=== PATIENT | female | born 1990 | race Caucasian/White ===

== ENCOUNTER 2017-04-09 13:30 | Inpatient (IN) | payer OTHER, SELFPAY ==
[2017-04-09 13:48] VITALS: BMI 31.6
[2017-04-09] MEDS: Lactated Ringers 1,000 ML 50 ML IV ×2 (14:00→15:50)
[2017-04-09 14:13] LABS: Hematocrit 36.2 % (37-47); Hemoglobin 12.8 g/dl (12.0-15.0); Mean Corp Hgb Conc 35.4 g/gl (32-36); Mean Platelet Vol. 9.9 fl (6.2-12.0); Platelet Count 199 K/mm3 (150-450); RBC Distribution Width SD 39.9 fl (35.1-43.9); Red Blood Count 4.26 M/mm3 (4.2-5.4); White Blood Count 12.6 K/mm3 (4.4-11.0)
[2017-04-09 14:14] LABS: Scan Indicated on CBC? Y/N NO
[2017-04-09] MEDS: Oxytocin 30 units/NS 500 ml 30 UNITS/500 ML IV.SOLN 334 UNITS IV (17:16)
[2017-04-09] MEDS: Oxytocin 30 units/NS 500 ml 30 UNITS/500 ML IV.SOLN 167 UNITS IV (17:46)
[2017-04-09 21:30] VITALS: BP 107/54; PULSE 80; RESP 16; TEMP 36.8; O2SAT 98
[2017-04-09] MEDS: Ibuprofen 600 MG Tablet PO (21:51)
[2017-04-09 23:35] VITALS: BP 117/71; PULSE 95; RESP 16; TEMP 36.6
[2017-04-10 03:10] VITALS: BP 108/54; PULSE 86; RESP 16; TEMP 36.6
[2017-04-10] MEDS: Ibuprofen 600 MG Tablet PO ×2 (03:54→11:12)
[2017-04-10 06:36] LABS: Hematocrit 33.1 % (37-47); Hemoglobin 11.7 g/dl (12.0-15.0); Mean Corp Hgb Conc 35.3 g/gl (32-36); Mean Corpuscular Hgb 30.4 pg (27.0-32.0); Mean Platelet Vol. 10.3 fl (6.2-12.0); Platelet Count 199 K/mm3 (150-450); RBC Distribution Width CV 12.9 % (11.6-14.6); RBC Distribution Width SD 39.4 fl (35.1-43.9); Red Blood Count 3.85 M/mm3 (4.2-5.4); White Blood Count 11.2 K/mm3 (4.4-11.0)
[2017-04-10 06:38] LABS: Scan Indicated on CBC? Y/N NO
--- NOTE | 2017-04-10 08:14 | PCM.OB.VAG ---
- Problem List (1) (spontaneous vaginal delivery) Status: Acute Vaginal Delivery Maternal Presentation: Active Labor Amniotic Membrane Rupture Type: Spontaneous Rupture of Membrane time: 04/09/17 Amniotic Fluid Description: Clear Final SALLY: 04/13/17 Final SALLY Source: US <20 weeks Gestational age: 39 Weeks and 3 Days Date of Procedure: 04/09/17 Pre-Operative Diagnosis: 39 3/7wga, labor Post-Operative Diagnosis: 39 3/7wga, labor Surgery/ Procedure Performed: Spontaneous Vaginal Delivery Anesthesiologist: Shadi Rose Type of Anesthesia: Epidural Description of Procedure: Patient was FD/+ 4 on my arrival and pushed to deliver a vigorous female infant in direct OP. The was placed on the maternal abdomen and further attended by nursery personnel. The cord was doubly clamped and cut at 4 minutes of life. The placenta delivered spontaneously and appeared intact. Cord blood was obtained. A first degree perineal laceration was repaired with 3-0 Vicryl Rapide. There was excellent hemostasis. Presentation: Vertex Placental Delivery Description: Spontaneous Placenta Disposition: [facility] Cord Vessel Description: 3 Vessels Nuchal Cord Compression: Without compression Cord Entanglement: None Drain: Dewey to straight drain Estimated Blood Loss: 300 A gender: Female (1 minute): 9 (5 minute): 9 Episiotomy Description: None Laceration: Midline, Vaginal Extension/lac, 1st degree Medications given after delivery: IV Pitocin
--- NOTE | 2017-04-10 08:19 | OP.PCM_ITS ---
- Problem List (1) (spontaneous vaginal delivery) Status: Acute Vaginal Delivery Maternal Presentation: Active Labor Amniotic Membrane Rupture Type: Spontaneous Rupture of Membrane time: 04/09/17 Amniotic Fluid Description: Clear Final SALLY: 04/13/17 Final SALLY Source: US <20 weeks Gestational age: 39 Weeks and 3 Days Date of Procedure: 04/09/17 Pre-Operative Diagnosis: 39 3/7wga, labor Post-Operative Diagnosis: 39 3/7wga, labor Surgery/ Procedure Performed: Spontaneous Vaginal Delivery Anesthesiologist: Shadi Rose Type of Anesthesia: Epidural Description of Procedure: Patient was FD/+ 4 on my arrival and pushed to deliver a vigorous female infant in direct OP. The was placed on the maternal abdomen and further attended by nursery personnel. The cord was doubly clamped and cut at 4 minutes of life. The placenta delivered spontaneously and appeared intact. Cord blood was obtained. A first degree perineal laceration was repaired with 3 -0 Vicryl Rapide. There was excellent hemostasis. Presentation: Vertex Placental Delivery Description: Spontaneous Placenta Disposition: [facility] Cord Vessel Description: 3 Vessels Nuchal Cord Compression: Without compression Cord Entanglement: None Drain: Dewey to straight drain Estimated Blood Loss: 300 A gender: Female (1 minute): 9 (5 minute): 9 Episiotomy Description: None Laceration: Midline, Vaginal Extension/lac, 1st degree Medications given after delivery: IV Pitocin
--- NOTE | 2017-04-10 08:20 | PCM.PN.OB ---
Patient Problems: Active and Suspected Problems (spontaneous vaginal delivery) (Acute) Subjective: No issues overnight. Denies heavy lochia. is latching and nursing well. No complaints. Objective: AVSS - Physical Exam General: Alert, Oriented x3, Cooperative, No apparent distress HEENT: Atraumatic, Normocephalic Lungs: Normal air movement Cardiovascular: Regular rate, Regular Rhythm, Normal S1, Normal S2 Abdomen: Soft, Non Tender, Non-Distended Extremities: No edema, No Calf Tenderness Neurological: Neuro grossly intact Psych/Mental Status: Normal Affect, Appropriate, Alert and oriented to time, place, person, mood and affect Vital Signs Temp Pulse Resp BP Pulse Ox 97.8 F 86 16 108/54 L 98 04/10/17 03:10 04/10/17 03:10 04/10/17 03:10 04/10/17 03:10 04/09/17 21:30 Oxygen Delivery Method Room Air Weight: 80.9 kg Body Mass Index (BMI) 31.6 Intake and Output for Last 24 Hours 04/08/17 04/09/17 04/10/17 23:59 23:59 23:59 Intake Total 236 / 236 Output Total 500 / 500 300 / 300 Balance -264 / -264 -300 / -300 Laboratory Tests Past 24 Hrs 04/09/17 04/09/17 04/09/17 14:00 14:00 20:40 WBC 12.6 H RBC 4.26 Hgb 12.8 Hct 36.2 L MCV 85.0 MCH 30.0 MCHC 35.4 RDW 13.0 RDW Differential 39.9 Plt Count 199 MPV 9.9 Blood Type O NEGATIVE Antibody Screen NEGATIVE Screen NEGATIVE Baby's Blood Type O POSITIVE Baby's TRACY NEGATIVE 04/10/17 06:10 WBC 11.2 H RBC 3.85 L Hgb 11.7 L Hct 33.1 L MCV 86.0 MCH 30.4 MCHC 35.3 RDW 12.9 RDW Differential 39.4 Plt Count 199 MPV 10.3 Blood Type Antibody Screen Screen Baby's Blood Type Baby's TRACY Assessment/Plan Active and Suspected Problems (spontaneous vaginal delivery) (Acute) 27yo PPD#2 s/p doing well. - -Rh negative, Rh positive - Rhogam ordered -Rubella immune -Routine care -Plan for early discharge today
--- NOTE | 2017-04-10 08:28 | DCINST_ITS ---
Discharge Diet: No Restrictions Discharge Activity: Return to Normal Activity, May Shower, May Take a Tub Bath May resume sexual activity in: 6 weeks Lifting Restrictions: 20 lb Call your doctor if you observe: Fever of 101 or Higher, Inability to urinate, Inability to have a bowel movement, Using more than one pad per hour, Shortness of breath, Chest pain, Uncontrolled pain Suture Line Care: Avoid Pulling/Pushing Cleanse incision/area with: Soap & Water Additional Instructions: If you experience any of the following, contact your healthcare provider. * Bleeding that soaks a pad every hour for 2 hours * Fever 100.4 or higher * Unrelieved incision or abdominal pain * Swelling, redness, discharge or bleeding from your incision or episiotomy site * Your incision begins to separate * Problems urinating (including inability to urinate or burning while urinating) . * Visual changes * Severe headache * Flu-like symptoms * Pain or redness in one of both of your breasts * Pain, warmth, tenderness or swelling in your legs, especially the calf area * Frequent nausea and vomiting * Symptoms of depression or anxiety If you experience any of the following, call 911 or go to the nearest Emergency Room. * Chest pain * Problems breathing * Seizure activity * Partial or complete paralysis of a body part, slurred speech, weakness or drooping of the face, or a sudden inability to walk or hold your balance Allergies/Adverse Reactions: Allergies No Known Allergies Allergy (Verified 04/09/17 13:54) Medications to take at Discharge Pnv95/Ferrous Fumarate/FA [ Vitamins Tablet] 1 each PO DAILY 04/09/17 Ibuprofen [Motrin] 800 mg PO TID PRN PRN #30 tablet 04/10/17 Senna/Docusate Sodium [Senokot-S] 1 - 2 tablet PO DAILY PRN PRN tablet The following prescriptions were given: Ibuprofen [Motrin] 800 mg PO TID PRN PRN #30 tablet PRN Reason: Constipation Orders to be completed after discharge: Electric breast pump Location: None Selected Please Follow Up With: Oneyda Rhodes MD When: 6 weeks Primary Care Physician: Darin White MD [Primary Care Provider] -
[2017-04-10 09:25] VITALS: BP 96/63; PULSE 75; RESP 16; TEMP 36.8
[2017-04-10] MEDS: Senna/Docusate Sodium 1 Tablet PO (11:23)
[2017-04-10 16:05] VITALS: BP 95/65; PULSE 75; RESP 16; TEMP 36.6
[2017-04-10 16:10] VITALS: BP 95/65; PULSE 75; RESP 16; TEMP 36.6
[2017-04-10 21:00] VITALS: BP 102/75; PULSE 65; RESP 18; TEMP 36.7
[2017-04-11 02:00] VITALS: BP 110/69; PULSE 66; RESP 16; TEMP 36.7
[2017-04-11] MEDS: Senna/Docusate Sodium 1 Tablet PO (07:48)
[2017-04-11 08:01] VITALS: BP 115/68; PULSE 60; RESP 16; TEMP 36.6; O2SAT 99
--- NOTE | 2017-04-11 08:16 | PCM.PN.OB ---
Patient Problems: Active and Suspected Problems (spontaneous vaginal delivery) (Acute) Subjective: No issues overnight. Infant latches well on right and intermittently and left, but otherwise nurses well. No complaints. Objective: AVSS - Physical Exam General: Alert, Oriented x3, Cooperative, No apparent distress HEENT: Atraumatic, Normocephalic Lungs: Clear to auscultation, Normal air movement Cardiovascular: Regular rate, Regular Rhythm, Normal S1, Normal S2 Abdomen: Soft, Non Tender, Non-Distended, - - Fundus firm and nontender Extremities: No edema Neurological: Neuro grossly intact Psych/Mental Status: Normal Affect, Appropriate, Alert and oriented to time, place, person, mood and affect Vital Signs Temp Pulse Resp BP Pulse Ox 97.8 F 60 16 115/68 99 04/11/17 08:01 04/11/17 08:01 04/11/17 08:01 04/11/17 08:01 04/11/17 08:01 Oxygen Delivery Method Room Air Weight: 80.9 kg Body Mass Index (BMI) 31.6 Intake and Output for Last 24 Hours 04/09/17 04/10/17 04/11/17 23:59 23:59 23:59 Intake Total 236 / 236 Output Total 500 / 500 300 / 300 Balance -264 / -264 -300 / -300 Assessment/Plan Active and Suspected Problems (spontaneous vaginal delivery) (Acute) 27yo PPD#2 s/p doing well. - -Rh negative, Rh positive -s/p Rhogam -Rubella immune -Routine care - awaiting bilirubin studies -Plan for d/c today -
== END 2017-04-11 11:20 | disposition home or self-care (01) | DRG 775 ==
PROVIDERS: Admitting Provider Obstetrics & Gynecology; Family Provider Family Medicine; PCP Family Medicine; Visit Provider Obstetrics & Gynecology
DX: O69.81X0 Labor and delivery complicated by cord around neck, without compression, not applicable or unspecified (principal); O70.0 First degree perineal laceration during delivery; Z3A.39 39 weeks gestation of pregnancy; Z37.0 Single live birth
CPT/HCPCS: 59025; 59050; 85027; 85461; 86850; 86900; 90384; 99218; J7120; A4216; G0378; J2790

== ENCOUNTER 2017-04-15 15:22 | Emergency (ER) | payer OTHER, SELFPAY ==
[2017-04-11 08:01] VITALS: BP 115/68
[2017-04-15 15:23] VITALS: BP 126/72; PULSE 74; RESP 16; TEMP 37.6; O2SAT 97; BMI 28.8
--- NOTE | 2017-04-15 15:50 | VDLE_ITS ---
Reason For Study: PAIN RIGHT LEFT GSV is normal. GSV is normal. CFV is compressible, spontaneous, phasic, CFV is compressible, spontaneous, phasic, competent and demonstrates normal competent, and demonstrates normal augmentation. augmentation. FV is compressible, spontaneous, phasic, FV is compressible, spontaneous, phasic, competent and demonstrates normal competent and demonstrates normal augmentation. augmentation. POP V is compressible, spontaneous, phasic, POP V is compressible, spontaneous, phasic, competent and demonstrates normal competent and demonstrates normal augmentation. augmentation. T/P Trunk is compressible. T/P Trunk is compressible. PTV is compressible. PTV is compressible. RT PerV is compressible. LT PerV is compressible. Procedure Exam performed portable in ED. The exam was diagnostic. A preliminary report was called and/or faxed to DR. MARQUEZ & ED. Interpretation Summary Deep veins of the lower extremities are bilaterally patent and compressible segmentally. There is no evidence of deep vein thrombosis on either side. Valvular competence appears intact within the proximal deep venous systems bilaterally. The greater saphenous veins appear bilaterally patent and compressible segmentally. Ordering Physician: Amalia Marquez Referring Physician: Oneyda Rhodes Performed By: Yasmin Bridges RVT
--- NOTE | 2017-04-15 15:50 | RAD_ITS ---
STUDY: X-RAY CHEST REASON FOR EXAM: Female, 27 years old. Fever. Headache. 6 days . Sharp intermittent left-sided chest pain. TECHNIQUE: Single AP portable view of the chest. COMPARISON: None. FINDINGS: The lungs are clear and expanded. No infiltrate or mass. There is no pneumothorax. There is no demonstrated pleural abnormality. Normal size heart. Normal mediastinum and alexander. Normal visualized pulmonary arteries. Normal visualized aortic arch and descending thoracic aorta. There is a minimal dextroscoliosis of the thoracic spine. Normal visualized ribs, clavicles, and shoulders. There is no demonstrated abnormality of the visualized soft tissue structures of the upper abdomen. RAD/Chest 1 View (Portable) IMPRESSION: No acute cardiopulmonary disease. Electronically Signed: Raj Irizarry DO at 16:14 EST Tel [phone], Service support ,
--- NOTE | 2017-04-15 15:51 | CT_ITS ---
STUDY: CT ABDOMEN AND PELVIS WITH CONTRAST REASON FOR EXAM: Female, 27 years old. Left-sided abdominal pain. 6 days . Fever. Calf pain. RADIATION DOSAGE (If Supplied By Facility): CTDIvol = ( 13.69 ) mGy, DLP = ( 857.39 ) mGycm TECHNIQUE: Transaxial images were obtained from the dome of the diaphragm to the symphysis pubis without oral contrast. 100 ml of Isovue 300 contrast was administered. Sagittal and coronal images were reconstructed. Individualized dose optimization techniques were used for this CT. COMPARISON: None. FINDINGS: The visualized lung bases are unremarkable. The visualized portions of the heart are within normal limits. Normal liver. Normal gallbladder and extrahepatic biliary system. There is mild splenomegaly. Normal pancreas. Normal bilateral adrenal glands. Normal right kidney. Normal left kidney. Normal visualized stomach. Normal small intestine. There is increased colonic feces without obstruction. The appendix is visualized and appears normal. Normal abdominal aorta. Normal inferior vena cava. Normal retroperitoneum. Normal urinary bladder. The uterus is markedly prominent keeping with recent delivery. Normal right adnexa. There is a 3.3 x 3.3 x 2.7 cm left adnexal cyst. No pelvic lymphadenopathy. No free air or free fluid is seen within the abdominal cavity. There is an umbilical hernia of omental fat. The abdominal wall is otherwise intact. Normal osseous structures. CT/Abdomen/Pelvis W IV Cont ONLY IMPRESSION: 1. Prominent uterus without gross abnormality. 2. Left ovarian cyst. 3. No other evidence for abdominal or pelvic abnormality. Electronically Signed: Raj Irizarry DO at 17:37 EST Tel [phone], Service support ,
--- NOTE | 2017-04-15 15:53 | ED.VISSUMM ---
- ER Visit Summary Date of Service: 04/15/17 Chief Complaint: Febrile illness History of Present Illness: The patient is a 27 F presenting with fever. Temperature at home has been up to 102.3. She complains of body aches, headache, mild cough. She has had left lower quadrant abdominal pain with constipation. She denies nausea vomiting. She does have sick contacts. She did not receive a flu shot this year. She is 6 days from a vaginal delivery. She took Motrin at home with improvement. Physical Examination: Vitals are stable. Temperature 99.7 . Alert no acute distress. HEENT exam is unremarkable. Neck is supple. No meningismus Lungs are clear and equal bilaterally. Heart is regular rate and rhythm. Abdomen is soft left lower quadrant tenderness with no rebound or guarding Extremities right posterior thigh tenderness, normal distal pulses bilaterally Pelvic: external exam unremarkable, no signs of infection Skin is warm and dry. Remainder of exam is unremarkable. Emergency Department Course and Treatment: She was given IV fluids, Toradol. CBC showed a white count of 14.0. Chemistries show potassium 3.3. Urinalysis shows 25-50 white blood cells, 10-25 red blood cells, urine culture is sent. influenza is negative. Chest x-ray shows no acute process. Ultrasound of the bilateral lower extremities shows no evidence of DVT. CT abdomen pelvis shows left ovarian cyst. Patient is resting comfortably in the emergency department. She is feeling improved. She is given potassium oral replacement and Keflex. Discussed with Dr. Miller and she will follow-up with Dr. Aracelis Jarrett. Advised return ED if worsening complaints. Disposition: Discharge home Impression: Febrile illness, , left ovarian cyst, UTI This note was generated with [employer] dictation software. It may contain incorrect words, spelling, and punctuation that were not noted in review of the chart prior to signing ED Disposition - Plan for ED Patient: Chief Complaint: Fever Referrals: Darin White MD [Primary Care Provider] -
--- NOTE | 2017-04-15 15:56 | ED.DCSUM_ITS ---
- ER Visit Summary Date of Service: 04/15/17 Chief Complaint: Febrile illness History of Present Illness: The patient is a 27 F presenting with fever. Temperature at home has been up to 102.3. She complains of body aches, headache , mild cough. She has had left lower quadrant abdominal pain with constipation. She denies nausea vomiting. She does have sick contacts. She did not receive a flu shot this year. She is 6 days from a vaginal delivery. She took Motrin at home with improvement. Physical Examination: Vitals are stable. Temperature 99.7 . Alert no acute distress. HEENT exam is unremarkable. Neck is supple. No meningismus Lungs are clear and equal bilaterally. Heart is regular rate and rhythm. Abdomen is soft left lower quadrant tenderness with no rebound or guarding Extremities right posterior thigh tenderness, normal distal pulses bilaterally Pelvic: external exam unremarkable, no signs of infection Skin is warm and dry. Remainder of exam is unremarkable. Emergency Department Course and Treatment: She was given IV fluids, Toradol. CBC showed a white count of 14.0. Chemistries show potassium 3.3. Urinalysis shows 25-50 white blood cells, 10-25 red blood cells, urine culture is sent. influenza is negative. Chest x-ray shows no acute process. Ultrasound of the bilateral lower extremities shows no evidence of DVT. CT abdomen pelvis shows left ovarian cyst. Patient is resting comfortably in the emergency department. She is feeling improved. She is given potassium oral replacement and Keflex. Discussed with Dr. Miller and she will follow-up with Dr. Aracelis Jarrett. Advised return ED if worsening complaints. Disposition: Discharge home Impression: Febrile illness, , left ovarian cyst, UTI This note was generated with [employer] dictation software. It may contain incorrect words, spelling, and punctuation that were not noted in review of the chart prior to signing ED Disposition - Plan for ED Patient: Chief Complaint: Fever Referrals: Darin White MD [Primary Care Provider] -
[2017-04-15 16:26] LABS: Absolute Lymphocyte Count 0.89 X10^3/ul (0.83-4.51); Absolute Neutrophil Count 12.2 X10^3/uL (2.0-7.7); Basophil# 0.02 X10^3/uL; Basophil% 0.1 % (0-1); Hematocrit 34.5 % (37-47); Lymphocyte # 0.89 X10^3/ul (4.0); Lymphocyte % 6.4 % (19-41); Mean Corp Hgb Conc 34.8 g/gl (32-36); Mean Corpuscular Hgb 29.6 pg (27.0-32.0); Mean Corpuscular Volume 85.2 fL (81-99); Monocyte# 0.84 X10^3/uL; Neutrophil # 12.18 X10^3/uL (2.7-7.7); Neutrophil % 87.1 % (47-70); Platelet Count 215 K/mm3 (150-450); RBC Distribution Width CV 12.5 % (11.6-14.6); RBC Distribution Width SD 38.8 fl (35.1-43.9); Red Blood Count 4.05 M/mm3 (4.2-5.4)
[2017-04-15 16:34] LABS: Anion Gap 11 (5-15); BUN 10 mg/dL (7-18); BUN/Creat Ratio 12.8 RATIO (10-20); Calcium,Total 8.7 mg/dL (8.5-10.1); Chloride 105 mmol/L (98-107); Creatinine, Serum 0.78 mg/dL (0.55-1.02); EST Glomerular Filtration Rate 94 mL/min (>60); Est Glom Filt Rate - Afr Amer 113 mL/min (>60); Estimated Creatinine Clearance 88.83 ml/min; Glucose 87 mg/dL (74-106); Potassium 3.3 mmol/L (3.5-5.1); Sodium Level 140 mmol/L (136-145)
[2017-04-15 16:36] LABS: POSITIVE COUNT NO; POSITIVE DIFFERENTIAL NO; POSITIVE MORPHOLOGY NO
[2017-04-15] MEDS: Ketorolac 15 MG/ML Vial IV (16:41)
[2017-04-15] MEDS: 0.9% Normal Saline 1,000 ML 1000 ML IV (16:41)
[2017-04-15 17:03] LABS: Mucous, Urine 0 SEEN /hpf (<or=2+)
[2017-04-15 17:09] LABS: Color, Urine Yellow (Yellow); Glucose, Dipstick Normal (Normal); Ketone-Dipstick Negative (Negative); Leukocyte Esterase-Dipstick 500 /ul (Negative); Nitrite-Dipstick Negative (Negative); Occult Blood-Urine 250 /ul (Negative); Protein-Dipstick 15 mg/dl (Negative); Specific Gravity, Urine 1.005 (1.002-1.030); Urine Bilirubin Dipstick Negative (Negative); Urine Clarity Sl. Cloudy (Clear); Urine Urobilinogen Normal (Normal); Urine pH 6.5 (5.0 - 8.0)
[2017-04-15 17:18] LABS: Amorphous Sediment 1+ URATE; Bacteria RARE /hpf (None Seen); Red Blood Cells-Urine 10-25 SEEN /hpf (0-5); Squamous Epithelial Cells - UA 0-5 SEEN /hpf (5-10); White Blood Cells 25-50 SEEN /hpf (0-5)
--- NOTE | 2017-04-15 18:02 | ED.DEP ---
ED Disposition - Plan for ED Patient: Chief Complaint: Fever Instructions: ED Flu, ED UTI Cystitis Female Prescriptions: Cephalexin [Keflex] 500 mg PO Q6 #40 capsule Referrals: Darin White MD [Primary Care Provider] - Oneyda Rhodes MD [STAFF PHYSICIAN] -
[2017-04-15] MEDS: Cephalexin 250 MG Capsule 500 MG PO (18:27)
[2017-04-15 18:31] VITALS: PULSE 68; RESP 16; O2SAT 100
== END 2017-04-15 18:33 | disposition home or self-care (01) ==
PROVIDERS: Emergency Provider Emergency Medicine; Family Provider Family Medicine; PCP Family Medicine
DX: O86.4 Pyrexia of unknown origin following delivery (principal); O86.20 Urinary tract infection following delivery, unspecified; N83.202 Unspecified ovarian cyst, left side
CPT/HCPCS: 71045; 74176; 80048; 81001; 85025; 87077; 87086; 87088; 87804; 93970; 96361; 96374; 99284; J7030; Q9967; A4216

== ENCOUNTER → 2020-04-13 | Outpatient (CLI) | payer OTHER, SELFPAY ==
[2020-04-19 15:59] LABS: HPV APTIMA, High Risk Negative (Negative)
== END | disposition home or self-care (01) ==
LOC: LABSPEC 15:21
PROVIDERS: PCP Family Medicine; Visit Provider Obstetrics & Gynecology
DX: Z12.4 Encounter for screening for malignant neoplasm of cervix (principal)
CPT/HCPCS: 87624; 88175; G0145

== ENCOUNTER → 2020-05-10 | Outpatient (CLI) | payer OTHER, SELFPAY ==
[2020-05-11 10:06] LABS: Probe Check PASS
== END | disposition home or self-care (01) ==
LOC: LABSPEC 15:28
PROVIDERS: PCP Family Medicine; Referring Provider Family Medicine; Visit Provider Nurse Practitioner Family
DX: U07.1 COVID-19 (principal)
CPT/HCPCS: 87635; U0002; U0003

== ENCOUNTER → 2020-10-02 11:02 | Outpatient (CLI) | payer OTHER, SELFPAY ==
[2020-10-02 12:38] LABS: Absolute Neutrophil Count 3.7 X10^3/uL (2.0-7.7); Basophil# 0.04 X10^3/uL; Basophil% 0.7 % (0-1); Eosinophil# 0.02 X10^3/uL; Eosinophils% 0.3 % (0-5); Hematocrit 40.6 % (37-47); Hemoglobin 13.9 g/dL (12.0-15.0); Lymphocyte % 25.8 % (19-41); Mean Corp Hgb Conc 34.2 g/dL (32-36); Mean Corpuscular Volume 84.6 fL (81-99); Mean Platelet Vol. 10.3 fl (6.2-12.0); Monocyte# 0.54 X10^3/uL; Monocyte% 9.3 % (0-10); NRBC Flagged by Analyzer 0 % (0-5); Neutrophil # 3.68 X10^3/uL (2.7-7.7); Neutrophil % 63.4 % (47-70); Platelet Count 279 K/mm3 (150-450); RBC Distribution Width CV 12.2 % (11.6-14.6); RBC Distribution Width SD 37.2 fl (35.1-43.9); White Blood Count 5.8 K/mm3 (4.4-11.0)
[2020-10-02 13:02] LABS: ALB/GLOB Ratio 1.2 RATIO (0.9-2.4); AST(SGOT) 15 U/L (15-37); Alanine Aminotransfer ALT/SGPT 22 U/L (13-56); Albumin, Serum 4.2 g/dL (3.2-5.0); Alkaline Phosphatase 62 U/L (45-117); Anion Gap 5 (5-15); BUN 14 mg/dL (7-18); BUN/Creat Ratio 16.8 RATIO (10-20); Calcium,Total 9.1 mg/dL (8.5-10.1); Chloride 105 mmol/L (98-107); Creatinine, Serum 0.83 mg/dL (0.55-1.02); EST Glomerular Filtration Rate 85 mL/min (>60); Est Glom Filt Rate - Afr Amer 103 mL/min (>60); Globulin 3.6 g/dL (2.2-4.2); Glucose 75 mg/dL (74-106); Potassium 3.8 mmol/L (3.5-5.1); Protein, Total 7.8 g/dL (6.4-8.2); Sodium Level 138 mmol/L (136-145); T4 Free Direct 0.75 ng/dL (0.76-1.46)
[2020-10-09 03:06] LABS: Thyroid Stim Immunoglob <0.10 IU/L (0.00-0.55)
[2020-10-09 10:06] LABS: Anti-Thyroglobulin AB 3.5 IU/mL (0.0-0.9); Thyroglobulin RIA 23 ng/mL (.); Thyroid Peroxidase AB 167 IU/mL (0-34)
== END ==
PROVIDERS: Family Medicine; PCP Family Medicine; Referring Provider Family Medicine; Visit Provider Family Medicine
DX: E01.0 Iodine-deficiency related diffuse (endemic) goiter (principal)
CPT/HCPCS: 36415; 80053; 84432; 84439; 84443; 84445; 85025; 86376; 86800

== ENCOUNTER → 2020-10-08 10:22 | Outpatient (CLI) | payer OTHER, SELFPAY ==
--- NOTE | 2020-10-08 10:24 | US_ITS ---
INDICATION: THROIMEGELY EXAMINATION: Ultrasound US Thyroid (eg thyroid, parathyroid, parotid) TECHNIQUE: Parks scale and color doppler imaging was performed of the thyroid gland. COMPARISON: None. FINDINGS: RIGHT THYROID LOBE: 5.8 x 2.4 x 2.1 cm. Heterogeneous echotexture with normal vascularity. [No thyroid nodules are present. LEFT THYROID LOBE: 5.0 x 2.0 x 1.9 cm. Heterogeneous echotexture with normal vascularity. [No thyroid nodules are present. ISTHMUS: 0.8 cm. No thyroid nodules are present. US/Thyroid IMPRESSION: A Mild thyroid goiter is identified. Electronically Signed: Darin Kam DO at 8:17 EDT Tel , Service support ,
== END ==
PROVIDERS: PCP Family Medicine; Referring Provider Family Medicine; Visit Provider Family Medicine
DX: E01.0 Iodine-deficiency related diffuse (endemic) goiter (principal)
CPT/HCPCS: 76536

== ENCOUNTER → 2021-01-17 16:33 | Outpatient (CLI) | payer OTHER, SELFPAY ==
[2021-01-17 18:01] LABS: Thyroid Stim Hormone (TSH) 0.41 uIU/mL (0.358-3.74)
== END ==
PROVIDERS: PCP Family Medicine; Referring Provider Family Medicine; Visit Provider Internal Medicine Endocrinology, Diabetes & Metabolism
DX: E06.3 Autoimmune thyroiditis (principal)
CPT/HCPCS: 36415; 84439; 84443

== ENCOUNTER 2021-05-21 07:41 | Outpatient (CLI) | payer OTHER, SELFPAY ==
--- NOTE | 2021-05-21 07:55 | RAD_ITS ---
INDICATION: DYSPHAGIA EXAMINATION/TECHNIQUE: Barium oral contrast and gas bubbles were administered to the patient. Total Fluoroscopic Time: 34 seconds AND number of Fluoroscopic Images: 24 OR Radiation dosage index: COMPARISON: None. FINDINGS: The esophagus does not coat well with barium however, no obvious masses or strictures. No obvious abnormalities in the mucosal pattern. Normal motility. There is no hiatal hernia. Reflux was not elicited. RAD/Esophagus Dual Contrast IMPRESSION: Unremarkable esophagram. Electronically Signed: Luke Arevalo, at 9:19 EDT ,
== END 2021-05-21 23:59 | disposition home or self-care (01) ==
LOC: RAD 07:44
PROVIDERS: PCP Family Medicine; Referring Provider Otolaryngology; Visit Provider Otolaryngology
DX: R13.10 Dysphagia, unspecified (principal)
CPT/HCPCS: 74221

== ENCOUNTER 2021-10-22 11:37 | Outpatient (CLI) | payer OTHER, SELFPAY ==
[2021-10-22 13:11] LABS: Absolute Lymphocyte Count 1.45 X10^3/uL (0.83-4.51); Absolute Neutrophil Count 7.1 X10^3/uL (2.0-7.7); Basophil# 0.03 X10^3/uL; Basophil% 0.3 % (0-1); Eosinophil# 0.02 X10^3/uL; Eosinophils% 0.2 % (0-5); Hematocrit 43.8 % (37-47); Hemoglobin 15.9 g/dL (12.0-15.0); Lymphocyte # 1.45 X10^3/ul (0.83-4.51); Lymphocyte % 15.8 % (19-41); Mean Corp Hgb Conc 36.3 g/dL (32-36); Mean Corpuscular Hgb 30.8 pg (27.0-32.0); Mean Corpuscular Volume 84.7 fL (81-99); Mean Platelet Vol. 10.6 fl (6.2-12.0); Monocyte# 0.49 X10^3/uL; Monocyte% 5.4 % (0-10); NRBC Flagged by Analyzer 0 % (0-5); Neutrophil # 7.12 X10^3/uL (2.7-7.7); Neutrophil % 77.9 % (47-70); Platelet Count 254 K/mm3 (150-450); RBC Distribution Width SD 36.5 fl (35.1-43.9); Red Blood Count 5.17 M/mm3 (4.2-5.4); White Blood Count 9.2 K/mm3 (4.4-11.0)
[2021-10-22 13:36] LABS: Thyroid Stim Hormone (TSH) 2.96 uIU/mL (0.358-3.74)
[2021-10-22 14:02] LABS: HIV - WCH Non-Reactive (Nonreactive); Hepatitis B Surface Antigen Non-Reactive (Nonreactive); Hepatitis C Antibody Non-Reactive (Nonreactive); Rubella IgG Reactive (Nonreactive); Syphilis Antibodies Non-reactive
[2021-10-24 22:06] LABS: Chlamydia By Nucleic Acid AMP Negative (Negative); Gonococcus By Nucleic Acid AMP Negative (Negative)
[2021-10-25 11:44] LABS: V-Zoster IgG (Immunity) 1707 index (Immune >165)
== END 2021-10-22 23:59 | disposition home or self-care (01) ==
LOC: WOBLAB 11:40
PROVIDERS: PCP Family Medicine; Referring Provider Obstetrics & Gynecology; Visit Provider Obstetrics & Gynecology
DX: O99.281 Endocrine, nutritional and metabolic diseases complicating pregnancy, first trimester (principal); E06.3 Autoimmune thyroiditis; Z11.3 Encounter for screening for infections with a predominantly sexual mode of transmission; Z12.4 Encounter for screening for malignant neoplasm of cervix; Z34.81 Encounter for supervision of other normal pregnancy, first trimester
CPT/HCPCS: 36415; 84443; 85025; 86703; 86762; 86780; 86787; 86803; 87086; 87088; 87340; 87491; 87591

== ENCOUNTER → 2021-12-17 | Outpatient (CLI) | payer OTHER, SELFPAY | END | disposition home or self-care (01) | LOC: WOBLAB 13:48 | PROVIDERS: PCP Family Medicine; Visit Provider Obstetrics & Gynecology | DX: E03.9 Hypothyroidism, unspecified (principal) | CPT/HCPCS: 36415; 84443 ==

== ENCOUNTER → 2022-03-19 | Outpatient (CLI) | payer OTHER, SELFPAY ==
[2022-03-19 11:51] LABS: Glucose Challenge Gest 1H 50g 110 mg/dL (70-140); Thyroid Stim Hormone (TSH) 0.94 uIU/mL (0.358-3.74)
[2022-03-19 12:01] LABS: Absolute Neutrophil Count 7.4 X10^3/uL (2.0-7.7); Basophil# 0.03 X10^3/uL; Basophil% 0.3 % (0-1); Eosinophil# 0.05 X10^3/uL; Eosinophils% 0.5 % (0-5); Hematocrit 34.3 % (37-47); Hemoglobin 12.2 g/dL (12.0-15.0); Lymphocyte % 12.8 % (19-41); Mean Corp Hgb Conc 35.6 g/dL (32-36); Mean Corpuscular Hgb 30.7 pg (27.0-32.0); Mean Corpuscular Volume 86.2 fL (81-99); Mean Platelet Vol. 10.6 fl (6.2-12.0); Monocyte# 0.57 X10^3/uL; Monocyte% 6.1 % (0-10); NRBC Flagged by Analyzer 0 % (0-5); Neutrophil # 7.39 X10^3/uL (2.7-7.7); Neutrophil % 79.2 % (47-70); Platelet Count 214 K/mm3 (150-450); RBC Distribution Width CV 12.7 % (11.6-14.6); RBC Distribution Width SD 39.7 fl (35.1-43.9); Red Blood Count 3.98 M/mm3 (4.2-5.4); White Blood Count 9.3 K/mm3 (4.4-11.0)
== END | disposition home or self-care (01) ==
LOC: WOBLAB 09:01
PROVIDERS: PCP Family Medicine; Visit Provider Obstetrics & Gynecology
DX: Z34.83 Encounter for supervision of other normal pregnancy, third trimester (principal)
CPT/HCPCS: 36415; 82950; 84443; 85025; 86850

== ENCOUNTER → 2022-05-14 | Outpatient (CLI) | payer OTHER, SELFPAY ==
[2022-05-14 13:02] LABS: Absolute Lymphocyte Count 1.62 X10^3/uL (0.83-4.51); Absolute Neutrophil Count 6.3 X10^3/uL (2.0-7.7); Basophil# 0.04 X10^3/uL; Basophil% 0.5 % (0-1); Eosinophil# 0.01 X10^3/uL; Eosinophils% 0.1 % (0-5); Hematocrit 37.2 % (37-47); Hemoglobin 13.3 g/dL (12.0-15.0); Lymphocyte # 1.62 X10^3/ul (0.83-4.51); Lymphocyte % 18.5 % (19-41); Mean Corp Hgb Conc 35.8 g/dL (32-36); Mean Corpuscular Hgb 30.1 pg (27.0-32.0); Mean Corpuscular Volume 84.2 fL (81-99); Mean Platelet Vol. 10.6 fl (6.2-12.0); Monocyte# 0.71 X10^3/uL; Monocyte% 8.1 % (0-10); NRBC Flagged by Analyzer 0 % (0-5); Neutrophil # 6.28 X10^3/uL (2.7-7.7); Neutrophil % 71.7 % (47-70); Platelet Count 214 K/mm3 (150-450); RBC Distribution Width CV 13.1 % (11.6-14.6); RBC Distribution Width SD 40.3 fl (35.1-43.9); Red Blood Count 4.42 M/mm3 (4.2-5.4); White Blood Count 8.8 K/mm3 (4.4-11.0)
[2022-05-14 13:26] LABS: Thyroid Stim Hormone (TSH) 0.74 uIU/mL (0.358-3.74)
[2022-05-14 13:32] LABS: Syphilis Antibodies Non-reactive
== END | disposition home or self-care (01) ==
LOC: WOBLAB 11:35
PROVIDERS: PCP Family Medicine; Visit Provider Obstetrics & Gynecology
DX: Z34.83 Encounter for supervision of other normal pregnancy, third trimester (principal); Z36.85 Encounter for antenatal screening for Streptococcus B
CPT/HCPCS: 36415; 84443; 85025; 86780; 87081

== ENCOUNTER 2022-05-26 09:36 | Inpatient (IN) | payer OTHER, SELFPAY ==
[2022-05-26] VITALS (63 sets, daily range): BP systolic 113–150; BP diastolic 57–87; PULSE 56–162; RESP 16; TEMP 36.6–37.7; O2SAT 88–100; BMI 31.5
[2022-05-26 09:33] LABS: ROM Internal Control Test YES-OK TO RESULT pt. (Internal QC)
[2022-05-26 09:34] LABS: ROM Patient Test POSITIVE (Negative)
[2022-05-26] MEDS: Lactated Ringers 1,000 ML 50 ML IV (10:10)
--- NOTE | 2022-05-26 10:31 | PCM.HP.BLA ---
History and Physical Date of Admission: 05/26/22 HPI: 32-year-old G3, P2 at 38/2 weeks, SALLY 06/07/2022 by LMP admitted for prelabor rupture of membranes. Patient had rupture of membranes at approximately noon on May 25. Reports irregular contractions, movement. Denies vaginal bleeding. Denies headache or vision changes, chest pain or shortness of breath, nausea or vomiting, diarrhea or constipation, fevers or chills. complicated by: Hypothyroidism with normal growth [employer] history G1: 41-week G2: 39-week G3 current Medical history: 1. Hypothyroidism Surgical history: 1. Foot surgery Medications: 1. Levothyroxine 88 mcg daily 2. vitamin Family history: Noncontributory no history of blood clots or bleeding disorders Social history: Denies tobacco, alcohol, drug use Allergies: No known drug allergies review of system: Negative otherwise stated above Physical exam: Blood pressure 126/84, pulse 66Temp 97.1 ?F, oxygen saturation 98% on room air General: No acute distress HEENT: Normal cephalic/atraumatic, PERRLA Cardiorespiratory: No increased effort Abdomen: Soft, nontender, gravid Extremities: No edema Neurologic: Cranial nerves II through XII grossly intact, no focal deficits Musculoskeletal: Strength out of 5 throughout extremities heart rate:135/mod angel/+accel/no decel Bowler: irregular Assessment/plan: 32-year-old G3, P2 at 38/2 weeks, SALLY 06/07/2022 by LMP admitted for prelabor rupture of membranes. complicated by: Hypothyroidism. ?Admit to labor and delivery for prelabor rupture of membranes. ? Augment with Pitocin since patient has been ruptured for almost 24 hours. ? Hypothyroidism, continue medication ? GBS negative ? Class I obesity
[2022-05-26 10:35] LABS: Absolute Lymphocyte Count 1.53 X10^3/uL (0.83-4.51); Absolute Neutrophil Count 6.9 X10^3/uL (2.0-7.7); Basophil# 0.05 X10^3/uL; Basophil% 0.5 % (0-1); Eosinophil# 0.02 X10^3/uL; Eosinophils% 0.2 % (0-5); Hemoglobin 13.9 g/dL (12.0-15.0); Lymphocyte # 1.53 X10^3/ul (0.83-4.51); Lymphocyte % 16.7 % (19-41); Mean Corp Hgb Conc 35.6 g/dL (32-36); Mean Corpuscular Volume 84.1 fL (81-99); Mean Platelet Vol. 10.7 fl (6.2-12.0); Monocyte# 0.65 X10^3/uL; Monocyte% 7.1 % (0-10); NRBC Flagged by Analyzer 0 % (0-5); Neutrophil # 6.86 X10^3/uL (2.7-7.7); Neutrophil % 74.8 % (47-70); Platelet Count 217 K/mm3 (150-450); RBC Distribution Width CV 13.2 % (11.6-14.6); Red Blood Count 4.64 M/mm3 (4.2-5.4); White Blood Count 9.2 K/mm3 (4.4-11.0)
[2022-05-26] MEDS: Oxytocin 15 Units/NS 250ml 15 UNITS/250 ML IV.SOLN 2 UNITS IV (10:41)
[2022-05-26 11:22] LABS: Syphilis Antibodies Non-reactive
[2022-05-26] MEDS: LACTATED RINGERS 500 ML 999 ML IV (14:12)
[2022-05-26] MEDS: fentaNYL-bupivacaine (epidural) 100 ML BAG EPIDURAL (15:02)
[2022-05-26] MEDS: Lactated Ringers 1,000 ML 200 ML IV (15:48)
--- NOTE | 2022-05-26 18:13 | EX.PCM.OBRPT ---
Maternal Data Information Final SALLY: 06/07/22 Vaginal Delivery Operative Information Date of Procedure: 05/26/22 Pre-Operative Diagnosis: Bentley intrauterine at term, prelabor rupture of membranes Post-Operative Diagnosis: Bentley intrauterine at term, prelabor rupture of membranes Surgery / Procedure Performed: Spontaneous Vaginal Delivery Type of Anesthesia: Epidural Estimated Blood Loss: 300cc Findings Description of Procedure: Spontaneous vaginal delivery of viable infant female. No nuchal cord. Baby to mom. Cord clamped and cut. Spontaneous delivery of placenta. Second-degree laceration repaired in the usual fashion, hemostatic. Infant A Gender: Female (1 minute): 8 (5 minute): 9 Complication Complications: None
[2022-05-26] MEDS: Oxytocin 15 Units/NS 250ml 15 UNITS/250 ML IV.SOLN 83 UNITS IV (18:46)
[2022-05-27] VITALS (8 sets, daily range): BP systolic 117–125; BP diastolic 70–86; PULSE 56–65; RESP 16–18; TEMP 36.8–37.1; O2SAT 98–100
[2022-05-27] MEDS: Ibuprofen 600 MG Tablet PO ×2 (01:20→12:39)
[2022-05-27] MEDS: Acetaminophen 500 MG Tablet 1000 MG PO ×2 (04:24→16:08)
[2022-05-27] MEDS: Levothyroxine 88 MCG Tablet PO (06:00)
--- NOTE | 2022-05-27 12:16 | PCM.PN.OB ---
Subjective Subjective Patient feeling well overall. Having some soreness. Working on breast-feeding. Objective Data Objective Data Vital Signs: Vital Signs Temp Pulse Resp BP Pulse Ox O2 Del Method 98.6 F 58 L 16 119/76 98 Room Air 05/27/22 12:11 05/27/22 12:11 05/27/22 12:11 05/27/22 12:11 05/27/22 12:11 05/27/22 12:11 Oxygen Delivery Method Room Air Weight: 80.8 kg Body Mass Index (BMI) 31.5 Intake & Output: Intake and Output for Last 24 Hours 05/25/22 05/26/22 05/27/22 23:59 23:59 23:59 Intake Total 2190.00 / 2190.00 Output Total 300 / 300 550 / 550 Balance 1890.00 / 1890.00 -550 / -550 Lab / Micro Data Attestation: I reviewed the patient's lab results. 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 Complicated by hypothyroidism. Will need repeat labs 6 to 12 weeks . Continue medication. Likely discharge home today. (2) (spontaneous vaginal delivery):
--- NOTE | 2022-05-27 12:17 | DCINST_ITS ---
Discharge Instructions Diet Discharge Diet: No restrictions Activity Discharge Activity: Return to Normal Activity and May Shower May resume sexual activity in: 4-6 weeks Weight Bearing Status: Weight bearing as tolerated Lifting Restrictions: No greater than 25 pounds Dressing / Incision Call your doctor if you observe: Fever of 101 or Higher, Change in Color, Inability to urinate, Using more than 1 pad per hour, Shortness of breath, Dizziness, Swelling in the ankles, Chest pain and Calf discomfort Follow Up Care Please Follow Up With: Jeffrey White MD When: 6-week visit Test Results: Test results from this visit will be discussed in further detail at your follow- up appointment, if applicable. Discharge Plan Admission Admit Date/Time: 05/26/22 09:36 Primary Reason for Your Visit: Vaginal delivery Attending Provider: Sherry White Primary Care Provider: Darin Whitehead Discharge Orders/Prescriptions Prescriptions: No Action prenat.vits,payal,[id number] Tablet 1 tab PO DAILY levothyroxine 88 mcg tablet 88 mcg PO DAILY Referrals / Follow Up: Darin Whitehead MD [Primary Care Provider] - Disposition Disposition (needs filled in before D/C Order can be placed): Home, Self Care
[2022-05-27] MEDS: Senna/Docusate Sodium 1 Tablet PO (16:08)
== END 2022-05-27 19:35 | disposition home or self-care (01) | DRG 807 ==
LOC: WP 10:38 → WPOUT 05-27 13:16
PROVIDERS: Obstetrics & Gynecology; Admitting Provider Student in an Organized Health Care Education/Training Program; PCP Family Medicine; Referring Provider Student in an Organized Health Care Education/Training Program; Visit Provider Student in an Organized Health Care Education/Training Program
DX: O42.10 Premature rupture of membranes, onset of labor more than 24 hours following rupture, unspecified weeks of gestation (principal); O99.284 Endocrine, nutritional and metabolic diseases complicating childbirth; E03.9 Hypothyroidism, unspecified; E06.3 Autoimmune thyroiditis; Z37.0 Single live birth; O99.214 Obesity complicating childbirth; E66.9 Obesity, unspecified; O70.1 Second degree perineal laceration during delivery; Z3A.38 38 weeks gestation of pregnancy; Z79.890 Hormone replacement therapy
CPT/HCPCS: 59025; 59050; 84112; 85025; 86780; 86850; 86900; 86901; 99221; J7120; G0378

== ENCOUNTER → 2022-07-28 | Outpatient (CLI) | payer OTHER, SELFPAY | END | disposition home or self-care (01) | PROVIDERS: PCP Family Medicine; Visit Provider Physician Assistant Surgical | DX: J02.9 Acute pharyngitis, unspecified (principal) | CPT/HCPCS: 87077; 87081 ==

== ENCOUNTER → 2023-05-18 | Outpatient (CLI) | payer OTHER, SELFPAY ==
[2023-05-18 11:44] LABS: T4 Free Direct 0.85 ng/dL (0.76-1.46); Thyroid Stim Hormone (TSH) 1.78 uIU/mL (0.358-3.74)
== END | disposition home or self-care (01) ==
LOC: MFPLAB 09:10
PROVIDERS: Internal Medicine Endocrinology, Diabetes & Metabolism; PCP Family Medicine; Visit Provider Family Medicine
DX: E03.8 Other specified hypothyroidism (principal); E06.3 Autoimmune thyroiditis
CPT/HCPCS: 36415; 84439; 84443

== ENCOUNTER → 2024-04-12 | Outpatient (CLI) | payer OTHER, SELFPAY ==
[2024-04-12 13:21] LABS: Cholesterol 137 mg/dL (200); High Density Lipoprotein 53 mg/dL; T4 Total, Thyroxin 9.3 ug/dL (4.8-13.9); Triglycerides 30 mg/dL; Very Low Density Lipoprotein 6 mg/dL (5-40)
== END | disposition home or self-care (01) ==
LOC: MFPLAB 10:16
PROVIDERS: PCP Family Medicine; Referring Provider Family Medicine; Visit Provider Family Medicine
DX: E03.8 Other specified hypothyroidism (principal); Z13.220 Encounter for screening for lipoid disorders
CPT/HCPCS: 36415; 80061; 84436; 84443